=== PATIENT | male | born 1980 | race Hispanic/Latino ===

== ENCOUNTER 2017-05-30 18:10 | Emergency (ER) | payer SELFPAY ==
[~2017-05-30] VITALS: Ht 165.1 cm; Wt 79.0 kg
[2017-05-30] MEDS ORDERED: PERCOCET 5/325M1 TAB PO (19:42)
[2017-05-30 19:58] VITALS: BP 125/79
== END 2017-05-30 20:01 | disposition home or self-care (01) | DRG 563 ==
LOC: ED 18:10
DX: S93.402A Sprain of unspecified ligament of left ankle, initial encounter (principal); S93.602A Unspecified sprain of left foot, initial encounter; W11.XXXA Fall on and from ladder, initial encounter; X50.1XXA Overexertion from prolonged static or awkward postures, initial encounter; Y93.89 Activity, other specified; Y92.009 Unspecified place in unspecified non-institutional (private) residence as the place of occurrence of the external cause

== ENCOUNTER 2023-11-06 10:25 | Emergency (ER) | payer SELFPAY ==
[~2023-11-06] VITALS: Ht 165.1 cm; Wt 45.0 kg
[~2023-11-06 10:25] MED LIST: PERCOCET 5/325M1 TAB PO
[2023-11-06 10:34] VITALS: BP 121/86
[2023-11-06] MEDS ORDERED: PREDNISONE50 MG PO (10:50)
[2023-11-06] MEDS ORDERED: ALL DAY10 MG PO (10:50)
[2023-11-06] MEDS ORDERED: DEXAMETHASONE SOD. PHOSPHATE 10 MG/ML VIAL IM ONE (10:50)
[2023-11-06 11:00] VITALS: BP 109/73
[2023-11-06 11:16] VITALS: BP 109/73
== END 2023-11-06 11:17 | disposition home or self-care (01) | DRG 916 ==
LOC: ED 10:25
DX: T78.40XA Allergy, unspecified, initial encounter (principal); X58.XXXA Exposure to other specified factors, initial encounter; Z21 Asymptomatic human immunodeficiency virus [HIV] infection status